=== PATIENT | male | born 1970 | race Caucasian/White ===

== ENCOUNTER 2024-07-05 12:36 | Emergency (ER) | payer MEDICAID, OTHER ==
[~2024-07-05] VITALS: Ht 172.7 cm; Wt 113.6 kg
[~2024-07-05 12:36] MED LIST: CITA-108 PO; ZOLP5TAB2 PO
[2024-07-05 12:47] VITALS: TEMP 98.4
[2024-07-05] MEDS: ACETAMINOPHEN 500 MG TABLET PO ONE (15:25)
[2024-07-05] MEDS ORDERED: LIDO700A15 TP (17:04)
[2024-07-05] MEDS ORDERED: IBUP-1492 PO (17:04)
[2024-07-05] MEDS ORDERED: ACET-3385 PO (17:04)
[2024-07-05 17:18] VITALS: BP 141/95; PULSE 89; RESP 18; O2SAT 99
== END 2024-07-05 17:20 | disposition home or self-care (01) ==
LOC: EMS 12:52
DX: S52.612A Displaced fracture of left ulna styloid process, initial encounter for closed fracture (principal); S52.502A Unspecified fracture of the lower end of left radius, initial encounter for closed fracture; S22.41XA Multiple fractures of ribs, right side, initial encounter for closed fracture; S09.90XA Unspecified injury of head, initial encounter; M25.562 Pain in left knee; E78.00 Pure hypercholesterolemia, unspecified; W11.XXXA Fall on and from ladder, initial encounter; Y93.89 Activity, other specified; Y92.89 Other specified places as the place of occurrence of the external cause; Y99.8 Other external cause status
CPT/HCPCS: 70450; 71250; 72125; 99284